=== PATIENT | female | born 1975 | race Caucasian/White ===

== ENCOUNTER 2017-05-23 09:20 | Emergency (ER) | payer MEDICAID ==
[~2017-05-23] VITALS: Ht 154.9 cm; Wt 72.6 kg
--- NOTE | 2017-05-23 09:45 | NUR ---
BIB SELF C/O CP X 1 DAY AND LEFT WRIST PAIN X 1 DAY, NAD NOTED, VSS, RESP EVEN AND UNLABORED, PT PUT ON MONITOR, WAITING FOR MD SERRATO.
[2017-05-23] MEDS ORDERED: IBUPROFEN 600 MG TABLET PO ONE (09:52)
[2017-05-23] MEDS ORDERED: IBUPROFEN 400 MG TABLET PO ONE (10:00)
--- NOTE | 2017-05-23 10:02 | NUR ---
XRAY AT BS
[2017-05-23 11:27] VITALS: BP 129/79
== END 2017-05-23 11:29 | disposition home or self-care (01) ==
LOC: ER 09:22
DX: M25.532 Pain in left wrist (principal); J45.909 Unspecified asthma, uncomplicated; Z88.8 Allergy status to other drugs, medicaments and biological substances; Z59.0 Homelessness
CPT/HCPCS: 71010-TC; A4606; Z7610

== ENCOUNTER 2017-06-27 07:34 | Emergency (ER) | payer MEDICAID, OTHER ==
[~2017-06-27] VITALS: Ht 154.9 cm; Wt 59.0 kg
[2017-06-27 07:40] VITALS: BP 135/79
[2017-06-27] MEDS ORDERED: NAPROXEN 250 MG TABLET ONE (07:58)
[2017-06-27] MEDS ORDERED: BACLOFEN (10 MG) 10 MG TABLET ONE (07:58)
[2017-06-27] MEDS: NAPROXEN 500 MG TABLET PO SCH (08:02)
[2017-06-27] MEDS: BACLOFEN (10 MG) 10 MG TABLET PO ONE (08:02)
== END 2017-06-27 08:04 | disposition home or self-care (01) ==
LOC: ER 07:36
DX: M62.830 Muscle spasm of back (principal); G89.29 Other chronic pain; G80.9 Cerebral palsy, unspecified; J45.909 Unspecified asthma, uncomplicated; Z59.0 Homelessness; Z88.8 Allergy status to other drugs, medicaments and biological substances
CPT/HCPCS: 99283; A4606; Z7610

== ENCOUNTER 2018-06-10 14:39 | Emergency (ER) | payer OTHER ==
[~2018-06-10] VITALS: Ht 154.9 cm; Wt 54.4 kg
[2018-06-10 14:53] VITALS: BP 123/69
[2018-06-10] MEDS ORDERED: ACETAMINOPHEN 650 MG/20.3 ML UDC ONE (15:22)
[2018-06-10] MEDS ORDERED: ACETAMINOPHEN 650 MG/20.3 ML UDC PO ONE (15:30)
== END 2018-06-10 15:26 | disposition home or self-care (01) ==
LOC: ER 14:44
DX: S09.8XXA Other specified injuries of head, initial encounter (principal); G80.9 Cerebral palsy, unspecified; F41.0 Panic disorder [episodic paroxysmal anxiety]; F25.9 Schizoaffective disorder, unspecified; Z98.890 Other specified postprocedural states; Z88.8 Allergy status to other drugs, medicaments and biological substances; W18.09XA Striking against other object with subsequent fall, initial encounter; Y93.89 Activity, other specified; Y92.89 Other specified places as the place of occurrence of the external cause; Y99.8 Other external cause status
CPT/HCPCS: A4606; Z7610

== ENCOUNTER 2018-07-24 12:21 | Emergency (ER) | payer MEDICARE, OTHER ==
[~2018-07-24] VITALS: Ht 152.4 cm; Wt 57.2 kg
--- NOTE | 2018-07-24 12:24 | NUR ---
[id number] AND [employer] FOUND ON THE STREET, C/O R FOOT PAIN, NOTED W BILATERAL FOOT SWELLING AND REDNESS. TO ER BED 6, HOOKED TO MONITOR, AWAITING MD SERRATO
--- NOTE | 2018-07-24 12:40 | NUR ---
DR HILTON AT BEDSIDE
[2018-07-24] MEDS ORDERED: CEFTRIAXONE 1 G VIAL ONE (12:48)
[2018-07-24] MEDS ORDERED: IBUPROFEN 600 MG TABLET PO ONE ×2 (12:49→13:00)
[2018-07-24] MEDS ORDERED: LIDOCAINE /MPF 1% VIAL 5 ML VIAL ONE (12:49)
[2018-07-24] MEDS ORDERED: SULFAMETH/TRIMETH 800/160 MG 1 UDTAB TABLET PO ONE ×2 (12:49→13:00)
[2018-07-24] MEDS ORDERED: CEFTRIAXONE 1 G VIAL IM ONE (13:00)
[2018-07-24 13:18] LABS: BASOPHILS % (AUTO) 0.7 % (0.0-2.0); EOSINOPHILS % (AUTO) 0.9 % (0.0-6.0); HEMATOCRIT 41 % (33-45); HEMOGLOBIN 14.1 g/dL (11.5-14.8); LYMPHOCYTES # (AUTO) 1.2 /CMM (0.8-4.8); LYMPHOCYTES % (AUTO) 20.5 % (20.0-44.0); MEAN CORPUSCULAR HGB CONC 35 g/dl (31.0-36.0); MEAN CORPUSCULAR VOLUME 89 fL (82-100); MONOCYTES # (AUTO) 0.3 /CMM (0.1-1.30); MONOCYTES % (AUTO) 5.4 % (2.0-12.0); NEUTROPHILS # (AUTO) 4.4 /CMM (1.8-8.9); NEUTROPHILS % (AUTO) 72.5 % (43.0-81.0); PLATELET COUNT (AUTO) 343 /CMM (150-450); RED BLOOD CELL COUNT(AUTO) 4.54 MIL/uL (4.0-5.2); WHITE BLOOD COUNT (AUTO) 6.1 K/uL (4.3-11.0)
[2018-07-24 13:27] LABS: CALCIUM, SERUM 9.4 mg/dL (8.5-10.1); CARBON DIOXIDE 32 mmol/L (21-32); CHLORIDE 102 mmol/L (98-107); CREATININE 0.7 mg/dL (0.6-1.3); GLUCOSE 87 mg/dL (74-106); POTASSIUM 3.9 mmol/L (3.5-5.1); SODIUM SERUM 139 mmol/L (136-145); UREA NITROGEN, BLOOD 9 mg/dL (7-18)
[2018-07-24 13:34] LABS: ACETAMINOPHEN 0 ug/ml (10-30); ALBUMIN 3.5 g/dL (3.4-5.0); ALCOHOL, BLOOD < 3 mg/dL (0-0); ALKALINE PHOSPHATASE 90 U/L (46-116); ASPARTATE AMINOTRANSFERASE 15 U/L (15-37); BILIRUBIN,DIRECT 0.2 mg/dL (0.0-0.2); BILIRUBIN,TOTAL 0.7 mg/dL (0.2-1.0); SALICYLATE 1.1 mg/dL (2.8-20.0); TOTAL PROTEIN, SERUM 7.7 g/dL (6.4-8.2)
[2018-07-24 13:59] LABS: ALANINE AMINOTRANSFERASE 17 U/L (12-78)
--- NOTE | 2018-07-24 15:15 | NUR ---
Quan suarez in [facility] - 07/24/18 at 1528 by JESSE SW AT BEDSIDE
--- NOTE | 2018-07-24 15:15 | NUR ---
CRISIS CHECK OUT CLERK AT BEDSIDE
[2018-07-24 15:33] LABS: APPEARANCE,URINE Clear (CLEAR); BILIRUBIN,URINE SMALL (NEGATIVE); BLOOD, URINE Negative Ery/uL (NEGATIVE); COLOR,URINE Yellow (YELLOW); KETONES,URINE 15 (NEGATIVE); LEUKOCYTE ESTERASE ,URINE Negative (NEGATIVE); NITRITE, URINE Negative (NEGATIVE); PH,URINE 5.5 (5.0-8.0); PROTEIN,URINE 30 mg/dl (NEGATIVE); UGLUCOSE Negative (NEGATIVE)
[2018-07-24 15:42] LABS: BACTERIA,URINE Rare /HPF (None Seen); SQUAMOUS EPITHELIAL CELL,UR Moderate /HPF (None Seen)
--- NOTE | 2018-07-24 15:53 | NUR ---
DINNER TRAY GIVEN TO PT, TOLERATING PO WELL
--- NOTE | 2018-07-24 17:03 | NUR ---
Patient discharged in stable condition. Provided w dry clothes. Provided w tap card and number to call for [facility]. Written and verbal after care instructions given. Patient verbalizes understanding of instruction.
[2018-07-24 17:05] VITALS: BP 122/72
== END 2018-07-24 17:08 | disposition home or self-care (01) ==
LOC: ER 12:25
DX: L03.115 Cellulitis of right lower limb (principal); G80.9 Cerebral palsy, unspecified; F20.9 Schizophrenia, unspecified; F41.0 Panic disorder [episodic paroxysmal anxiety]; F15.10 Other stimulant abuse, uncomplicated; F29 Unspecified psychosis not due to a substance or known physiological condition; Z59.0 Homelessness; Z98.890 Other specified postprocedural states; Z88.8 Allergy status to other drugs, medicaments and biological substances
CPT/HCPCS: 36415; 80048-TC; 80076-TC; 80305; 81000-TC; 84703-TC; 85025-TC; G0480; J0696; J3490

== ENCOUNTER 2018-07-30 15:33 | Inpatient (IN) | payer MEDICARE, OTHER ==
[~2018-07-30] VITALS: Ht 154.9 cm; Wt 67.1 kg
--- NOTE | 2018-07-30 15:40 | NUR ---
PT BIB RA WITH A C/O RT FOOT/ RLE PAIN. PT USES A WHEELCHAIR TO GET AROUND LONG DISTANCES DUE TO HAVING CEREBRAL PALSY. [place] IS [place] STRE[place] AND WILL NEED DIRECTOR COMMUNICATIONS. PT'S RT FOOT IS RED, EDEMATOUS, AND PAINFUL. PT WENT TO ER 13 AND WAS TRIAGED. PT IS ON THE MONITOR AND CONTINUOUS PULSE OX.
--- NOTE | 2018-07-30 16:12 | NUR ---
FOOD SERVICE DIRECTOR CALLED AND WILL SEE THE PT.
--- NOTE | 2018-07-30 16:14 | NUR ---
PT WAS SEEN BY MACHINE WELT BUTTER.
--- NOTE | 2018-07-30 16:16 | NUR ---
XRAY IN PROGRESS AT THE BEDSIDE.
--- NOTE | 2018-07-30 16:23 | NUR ---
20G IV STARTED IN RT HAND. BLOOD DRAWN AND BLOOD CULTURES X 2 DRAWN. DELIVERY RECRUITER IS AT THE BEDSIDE.
[2018-07-30] MEDS ORDERED: VANCOMYCIN 1 GM in IV D5W 250 ML IV ONE (16:30)
[2018-07-30 16:31] LABS: BASOPHILS # (AUTO) 0.1 /CMM (0.0-0.2); BASOPHILS % (AUTO) 0.7 % (0.0-2.0); HEMATOCRIT 34 % (33-45); HEMOGLOBIN 11.8 g/dL (11.5-14.8); LYMPHOCYTES # (AUTO) 2.3 /CMM (0.8-4.8); LYMPHOCYTES % (AUTO) 26.6 % (20.0-44.0); MEAN CORPUSCULAR HGB CONC 34 g/dl (31.0-36.0); MEAN CORPUSCULAR VOLUME 90 fL (82-100); MONOCYTES # (AUTO) 0.4 /CMM (0.1-1.30); MONOCYTES % (AUTO) 4.3 % (2.0-12.0); NEUTROPHILS # (AUTO) 5.8 /CMM (1.8-8.9); NEUTROPHILS % (AUTO) 67.4 % (43.0-81.0); PLATELET COUNT (AUTO) 356 /CMM (150-450); RED BLOOD CELL COUNT(AUTO) 3.83 MIL/uL (4.0-5.2); WHITE BLOOD COUNT (AUTO) 8.6 K/uL (4.3-11.0)
--- NOTE | 2018-07-30 16:35 | NUR ---
Quan suarez in [facility] - 07/30/18 at 1641 by JACKIE 20G IV STARTED IN RT HAND. BLOOD DRAWN AND BLOOD CULTURES X 2 DRAWN. ELECTRIC POWERLINE EXAMINER IS AT THE BEDSIDE.
[2018-07-30 16:38] LABS: CALCIUM, SERUM 8.9 mg/dL (8.5-10.1); CREATININE 0.7 mg/dL (0.6-1.3); POTASSIUM 3.8 mmol/L (3.5-5.1)
[2018-07-30 16:44] LABS: ALBUMIN 3.4 g/dL (3.4-5.0); BILIRUBIN,DIRECT 0.1 mg/dL (0.0-0.2); BILIRUBIN,TOTAL 0.1 mg/dL (0.2-1.0); TOTAL PROTEIN, SERUM 7.3 g/dL (6.4-8.2)
[2018-07-30] MEDS ORDERED: CEPH-570 PO (16:53)
[2018-07-30] MEDS ORDERED: PROPRANOLOL PO (16:53)
[2018-07-30] MEDS ORDERED: SULF1TAB48 PO (16:53)
[2018-07-30] MEDS ORDERED: FLEXERIL PO (16:53)
[2018-07-30] MEDS ORDERED: ELLIPTA IH (16:53)
[2018-07-30] MEDS ORDERED: IBUP-1953 PO (16:53)
[2018-07-30] MEDS ORDERED: ALBU18HF2 IH (16:53)
--- NOTE | 2018-07-30 17:02 | NUR ---
DOPPLER IN PROGRESS AT THE BEDSIDE.
--- NOTE | 2018-07-30 17:40 | NUR ---
PT WAS DISCONNECTED FROM THE MONITOR AND WAS ABLE TO MOVE FROM THE GURNEY TO HER WC WITHOUT ASSISTANCE. PT WENT TO THE BATHROOM VIA WC.
--- NOTE | 2018-07-30 17:50 | NUR ---
PT RETURNED TO ER BED #13 AND WAS ABLE TO MOVE FROM THE WC TO THE BED ON HER OWN. PT WAS RECONNECTED TO THE MONITOR.
--- NOTE | 2018-07-30 17:55 | NUR ---
CALLING REPORT TO MS NURSE. PT IS GOING TO [phone].
--- NOTE | 2018-07-30 18:14 | NUR ---
REPORT GIVEN TO STEFANI RN - MS NURSE.
--- NOTE | 2018-07-30 19:35 | NUR ---
RN MS OPENING NOTES RECEIVED PT IN BED, AWAKE ALERT ORIENTEDX4, BROUGHT UP TO THE FLOOR AT 1750. BREATHING EVEN AND UNLABORED ON ROOM AIR. NO COMPLAINT OF PAIN OR DISCOMFORT AT THE MOMENT. IV ACCESS ON THE R HAND G20 WITH NS @75ML/HR. SKIN ISSUES DOCUMENTED AND PICTURED IN CHART. BED IN LOWEST LOCKED POSITION CALL LIGHT WITHIN REACH AT ALL TIMES WILL CONTINUE TO MONITOR.
[2018-07-30 20:00] VITALS: BP 111/77
[2018-07-30] MEDS ORDERED: MAG HYDROX/AL HYDROX/SIMETH 30 ML UDC PO PRN (21:00)
[2018-07-30] MEDS ORDERED: Z GUARD REMEDY 2 OZ OINT TP PRN (21:00)
[2018-07-30] MEDS ORDERED: ONDANSETRON HCL/PF 4 MG/2 ML VIAL IVP PRN (21:00)
[2018-07-30] MEDS ORDERED: ZOLPIDEM TARTRATE 5 MG TABLET PO PRN (21:00)
[2018-07-30] MEDS ORDERED: ACETAMINOPHEN 325 MG TABLET PO PRN (21:00)
[2018-07-30] MEDS ORDERED: MAGNESIUM HYDROXIDE 30 ML UDC PO PRN (21:00)
[2018-07-31] MEDS ORDERED: VANCOMYCIN 1 GM in IV D5W 250 ML IV SCH ×2
[2018-07-31] MEDS: IV NS 0.9% 1,000 ML IV PRN ×2 (03:34→17:25)
[2018-07-31] MEDS: VANCOMYCIN 1 GM VIAL ONE ×2 (03:35→03:40)
[2018-07-31] MEDS: VANCOMYCIN 1 GM in IV D5W 250ml IV ONE ×2 (04:30→04:37)
--- NOTE | 2018-07-31 06:37 | NUR ---
RN MS CLOSING PT REMAINS IN BED, SLEEPING ,EASILY AROUSED TO NAME CALL OR TOUGH. BREATHING EVEN AND UNLABORED ON ROOM AIR, NO SOB NOTED. NO COMPLAINT OF PAIN OR DISCOMFORT AT THIS TIME.IV ACCESS ON THER HAND 20G WITH NS @75 ML/HR. ALL NEEDS ATTENDED TO. BED IN LOWEST LOCKED POSITION CALL LIGHT WITHIN REACH AT ALL TIMES WILL ENDORSE TODAY DAY NURSE FOR PATRICIA
[2018-07-31 07:10] LABS: BASOPHILS % (AUTO) 0.2 % (0.0-2.0); EOSINOPHILS % (AUTO) 1.1 % (0.0-6.0); HEMATOCRIT 35 % (33-45); LYMPHOCYTES # (AUTO) 1.6 /CMM (0.8-4.8); LYMPHOCYTES % (AUTO) 29.9 % (20.0-44.0); MEAN CORPUSCULAR HGB CONC 35 g/dl (31.0-36.0); MEAN CORPUSCULAR VOLUME 89 fL (82-100); MONOCYTES # (AUTO) 0.3 /CMM (0.1-1.30); MONOCYTES % (AUTO) 4.8 % (2.0-12.0); NEUTROPHILS # (AUTO) 3.4 /CMM (1.8-8.9); PLATELET COUNT (AUTO) 306 /CMM (150-450); WHITE BLOOD COUNT (AUTO) 5.4 K/uL (4.3-11.0)
[2018-07-31] MEDS ORDERED: FEE PK DOSING 1 MIN EA MC ONE (07:26)
[2018-07-31 07:42] LABS: BILIRUBIN,TOTAL 0.4 mg/dL (0.2-1.0); CALCIUM, SERUM 8.5 mg/dL (8.5-10.1); CREATININE 0.7 mg/dL (0.6-1.3); MAGNESIUM 2.3 mg/dL (1.8-2.4); PHOSPHORUS 3.6 mg/dL (2.5-4.9); POTASSIUM 3.8 mmol/L (3.5-5.1); TOTAL PROTEIN, SERUM 6.5 g/dL (6.4-8.2)
[2018-07-31 08:00] VITALS: BP 105/60
[2018-07-31] MEDS ORDERED: VANCOMYCIN 1 GM in IV D5W 250ml IV ONE (08:00)
--- NOTE | 2018-07-31 08:00 | NUR ---
RN NOTES RECEIVED PATIENT IN THE BED A/O X3/4, PATIENT HAS NO ACUTE RESPIRATORY DISTRESS, PATIENT WAS COMPLAINING OF PAIN LOWER BILATERAL LEGS ON 2/10 ON PAIN SCALE, REFUSED PAIN MEDICATION AT THIS TIME. PATIENT HAS CEREBRAL PALSY WITH EXAGGERATED REFLEXES DEPENDENT, USING BEDSIDE COMMODE WITH NURSES MEDICAL ASSISTANTS PHLEBOTOMISTS. SAFETY PRECAUTION MAINTAINED ALL THE TIME. V/S STABLE, NEEDS ATTENDED AND ANTICIPATED, CALL LIGHT WITHIN TO REACH. CONTINUED MONITORING.
--- NOTE | 2018-07-31 12:15 | NUR ---
RN NOTES INFUSING VANCOMYCIN 250 MG/ML ON RIGHT WRIST AT THIS TIME, INTACT, PATIENT STABLE, EDEMA LOWER EXTREMITIES, KEEP ELEVATED USING PILLOW. CALL LIGHT WITHIN TO REACH. SAFETY PRECAUTION MAINTAINED ALL THE TIME.
[2018-07-31] MEDS: VANCOMYCIN 1 GM in IV D5W 250 ML IV SCH ×2 (12:34→20:14)
--- NOTE | 2018-07-31 12:50 | NUR ---
Social service consult requested by Dr. Mills for homelessness. Pt. is a 42 year old male who was admitted to [facility] for cellulitis. SW met with pt. bedside. Pt. is alert and oriented x 4. SW met with pt. yesterday in the ED prior to being admitted to [facility]. Pt. is homeless and has been for the past two years. Pt. has Cerebral Palsy and is wheelchair bound. Pt. moved with her boyfriend Scott Crook from [place] two years ago.Pt. moved to [facility] to get into acting and be close to [place]. Pt. was born and raised in [place]. Pt's family is in [place]. Pt's father is in an assisted living in [place]. Pt. has an ex- and four children who are in [place]. Pt. went to college in [place] and graduated with a bachelors in Psychology. Pt. has good insight into her mental illness. Pt. has a psychiatric diagnosis of OCD, Major Depression and Agoraphobia with panic disorder. Pt. is currently on no psychiatric medications at this time. Pt. is currently residing at the [facility]. Pt. has a letter from Yolanda Grande that states pt. can go directly to the winter halfway at [facility] instead of at the cherry picker operator locations. SW contacted Yolanda Grande via email ([email or web address]) to confirm if pt. can come directly the the halfway. Pt's medical doctor is Dr. Timmy Alford located at [facility] located at [address] [place] [address] in [facility] . Pt. states she is also linked with [facility] who are assisting with housing. Pt. is also being linked to [facility] with assistance from [facility].
--- NOTE | 2018-07-31 14:05 | NUR ---
RN NOTES COLLECTED UA FOR .
[2018-07-31 16:00] VITALS: BP 110/60
[2018-07-31] MEDS: HYDROCODONE/APAP 5/325MG 1 EACH TABLET PO PRN ×2 (17:25→22:03)
--- NOTE | 2018-07-31 17:26 | NUR ---
RN NOTES ADMINISTERED NARCO 5/325 MG PO PRN FOR BILATERAL LOWER EXTREMITIES PAIN 6/10 PER PATIENT REQUEST, V/S TAKEN BP 110/60, P-62, CALL LIGHT WITHIN TO REACH, SAFETY PRECAUTION MAINTAINED ALL THE TIME.
--- NOTE | 2018-07-31 18:30 | NUR ---
RN NOTES PATIENT STABLE, MEDICATION WERE ADMINISTERED FOR PAIN EFFECTIVE. PATIENT RESTING AT THIS TIME. CALL LIGHT WITHIN TO REACH. ENDORSED ONCOMING NURSE FOR PLAN OF CARE.
--- NOTE | 2018-07-31 19:45 | NUR ---
MS RN NOTES RECEIVED ON BED A/O X4,NO SOB,RIGHT LOWER LEG WITH SLIGHT REDNESS NOTED,NO OPEN SKIN.PITTING EDEMA NOTED ON BOTH LOWER LEGS .IVF NS 75ML/HR RATE IN PROGRESS VIA IV PUMP ON RIGHT HAND.ASSIST WITH TRANSFER TO BEDSIDE COMMODE.CALL LIGHT IN REACH,NEEDS ANTICIPATED.
[2018-07-31 20:00] VITALS: BP_SYST 100; BP_SYST 103; BP_DIAS 61; BP_DIAS 68
--- NOTE | 2018-07-31 22:03 | NUR ---
MS RN NOTES PAIN MANAGEMENT C/O RIGHT LOWER LEG PAIN 6/10 ON PAIN SCALE,NORCO 5/325MG 1TAB PO ORDERED
[2018-08-01 03:39] LABS: CALCIUM, SERUM 8.3 mg/dL (8.5-10.1); CREATININE 0.6 mg/dL (0.6-1.3); POTASSIUM 4.1 mmol/L (3.5-5.1)
--- NOTE | 2018-08-01 04:00 | NUR ---
MS RN NOTES VANCO TROUGH 17,DOSE ADMINISTERED
[2018-08-01] MEDS: VANCOMYCIN 1 GM in IV D5W 250 ML IV SCH (04:09)
[2018-08-01] MEDS: HYDROCODONE/APAP 5/325MG 1 EACH TABLET PO PRN ×3 (04:16→16:34)
--- NOTE | 2018-08-01 04:16 | NUR ---
MS RN NOTES C/O RIGHT LOWER LEG PAIN,NORCO 5/325MG,1 TAB PO GIVEN FOR PAIN 5/10 ON PAIN SCALE.
[2018-08-01 04:55] VITALS: BP 142/72
--- NOTE | 2018-08-01 07:18 | NUR ---
MS RN NOTES NO SIGNIFICANT CHANGE IN STATUS.POSSIBLE D/C TO LONGTERM TODAY.IN NO ACUTE DISTRESS.ENDORSE TO DAY NURSE FOR PATRICIA.
--- NOTE | 2018-08-01 07:48 | NUR ---
RN OPENING NOTES PT RECEIVED IN BED AT LOWEST AND LOCKED POSITION WITH SIDE RAILS UP X2, A/O X4, BREATHING EVEN AND UNLABORED, NO S/S OF PAIN OR DISTRESS NOTED AT THIS TIME, IV IS PATENT AND INTACT, BLE NOTED TO BE SLIGHTLY RED, SAFETY PRECAUTIONS IN PLACE, CALL LIGHT WITHIN REACH WILL MONITOR ACCORDINGLY.
[2018-08-01 08:44] VITALS: BP 103/69
[2018-08-01] MEDS: IV NS 0.9% 1,000 ML IV PRN (10:03)
[2018-08-01] MEDS: VANCOMYCIN 0.75 GM in IV D5W 250 ML IV SCH ×2 (11:12→19:46)
--- NOTE | 2018-08-01 11:50 | NUR ---
LD received an email response from Bit Tripoler Yolanda Grande from [facility] informing LD that there are a total of five different agencies trying to help Pt. and her partner Scott, who is gravely disabled as well. They are unable to receive pt. at the [facility] any longer due to her disabilities, the custodial is not set up to manage people that need to be cared for at the level pt. needs. To that end, [employer] and [employer]ATH[employer] are working to find a motel voucher for Pt and her partner. Yolanda informed LD she will reach out to today to let her know which motel he is placed at so she can be transported to the same location. LD also received a call from Armida at [facility] inquiring if pt. is being discharged today since they are trying to find appropriate placement for pt. to be discharged to when medically cleared to leave [facility]. LD informed Micheline that pt. will most likely be discharged tomorrow. Armida informed LD she will contact her once a placement as been determined.
[2018-08-01 15:53] VITALS: BP 106/62
--- NOTE | 2018-08-01 16:34 | NUR ---
RN NOTE NORCO GIVEN AT THIS TIME DUE TO PATIENT COMPLAINING OF BLE PAIN
--- NOTE | 2018-08-01 18:33 | NUR ---
RN CLOSING NOTES PT BED AT LOWEST AND LOCKED POSITION, A/O X4, BREATHING EVEN AND UNLABORED, NO S/S OF PAIN OR DISTRESS, IV IS PATENT AND INTACT, ALL NEEDS ATTENDED TO, SAFETY PRECAUTIONS IN PLACE, CALL LIGHT WITHIN REACH, WILL ENDORSE TO THERAPEUTIC ASSISTANT RN FOR PATRICIA.
--- NOTE | 2018-08-01 19:30 | NUR ---
MS RN NOTES RECEIVED ON BED A/O X4,BREATHING NORMAL.IVF IN PROGRESS AT 75ML/HR RATE ON RIGHT WRIST VIA IV PUMP.
[2018-08-01 20:00] VITALS: BP_SYST 106; BP_DIAS 45; BP_DIAS 49
--- NOTE | 2018-08-01 20:00 | NUR ---
MS RN NOTES OOB TO BEDSIDE COMMODE ASSISTED BY
[2018-08-02] MEDS: HYDROCODONE/APAP 5/325MG 1 EACH TABLET PO PRN ×2 (00:52→10:21)
--- NOTE | 2018-08-02 00:52 | NUR ---
MS RN NOTES C/O RIGHT LOWER LEG PAIN 6/10 ON PAIN SCALE.NORCO 5/325MG,1TAB PO GIVEN FOR MODERATE PAIN
[2018-08-02] MEDS: VANCOMYCIN 0.75 GM in IV D5W 250 ML IV SCH ×2 (04:03→11:31)
[2018-08-02] MEDS: IV NS 0.9% 1,000 ML IV PRN (04:09)
--- NOTE | 2018-08-02 06:37 | NUR ---
MS RN NOTES SLEPT WELL AT NIGHT,PAIN MANAGEMENT EFFECTIVE.IVF IN PROGRESS.IN NO ACUTE DISTRESS.POSSIBLE D/C TO SNF .WILL ENDORSE TO DAY NURSE FOR PATRICIA.
[2018-08-02 06:48] LABS: CALCIUM, SERUM 8.4 mg/dL (8.5-10.1); CREATININE 0.6 mg/dL (0.6-1.3); POTASSIUM 4.1 mmol/L (3.5-5.1)
--- NOTE | 2018-08-02 07:20 | NUR ---
RN OPENING NOTES PT RECEIVED SLEEPING IN BED AT LOWEST AND LOCKED POSITION WITH SIDE RAILS UP X2, A/O X4, BREATHING EVEN AND UNLABORED, NO S/S OF PAIN OR DISTRESS NOTED AT THIS TIME, IV IS PATENT AND INTACT, BLE NOTED TO BE SLIGHTLY RED, SAFETY PRECAUTIONS IN PLACE, CALL LIGHT WITHIN REACH WILL MONITOR ACCORDINGLY.
[2018-08-02 08:00] VITALS: BP 125/92
--- NOTE | 2018-08-02 10:21 | NUR ---
RN NOTE PT WAS GIVEN NORCO AT THIS TIME DUE TO COMPLAINT OF PAIN OF 7 IN HER RIGHT LOWER EXTREMITY
--- NOTE | 2018-08-02 10:46 | NUR ---
LD left an email and several messages for Yolanda Grande ; , aircraft cleaning supervisor at [facility] informing her regarding pt. being discharged today. Per Yolanda request pt. can only be discharged to a location she is going to provide for the pt. LD also left message for Armida requesting a call back and informing her that pt. is being discharged today. Pt. cannot be discharged back to the street per Yolanda.
--- NOTE | 2018-08-02 14:43 | NUR ---
DISCHARGE NOTE PT WAS D/C AT THIS TIME IN MEDICAL STABLE CONDITION VIA [facility] TO [facility] OF THE [facility] AT [address]. ALL D/C PAPERWORK, BELONGING LIST, AND EXITCARE WAS DISCUSSED, SIGNED, AND HANDED TO THE PATIENT. MEDICATIONS WERE RETURNED TO HER WELL. ID BAND AND IV WERE REMOVED. SKIN WOUNDS WERE DOCUMENTED. ALL NEEDS WERE ATTENDED TO DURING HER STAY. SHE WAS TAKEN DOWN BY ME IN HER PERSONAL WHEEL CHAIR WERE SHE WAS PICKED UP BY [facility].
== END 2018-08-02 14:23 | disposition home or self-care (01) | DRG 383 ==
LOC: ER 16:21 → MED 18:58
PROVIDERS: ADMIT Internal Medicine; ATTEND Internal Medicine
DX: L03.115 Cellulitis of right lower limb (principal); F25.9 Schizoaffective disorder, unspecified; G80.9 Cerebral palsy, unspecified; J45.909 Unspecified asthma, uncomplicated; Z59.0 Homelessness
CPT/HCPCS: 36415; 73630-TC; 80048-TC; 80053-TC; 80061-TC; 80076-TC; 80202-TC; 83735-TC; 84100-TC; 84703-TC; 85025-TC; 87040-TC; 87081-TC; 93970-TC; G0378; J3370; J7030; J7060